=== PATIENT | male | born 1970 | race Hispanic/Latino ===

== ENCOUNTER 2016-11-01 00:02 | Emergency (ER) | payer OTHER ==
[2016-11-01 00:15] VITALS: BP 167/92
[2016-11-01] MEDS ORDERED: METFORMIN HCL1000 M2 PO (00:16)
[2016-11-01] MEDS ORDERED: VOLTAREN100 GM TOP (00:16)
--- NOTE | 2016-11-01 00:36 | ED GI/GU/ABDOMINAL COMPLAINT ---
History of Present Illness General Chief Complaint: Male Genitourinary Problems Stated Complaint: "PER PT YEAST INFECTION?" Source: patient, old records Exam Limitations: no limitations Vital Signs & Intake/Output Vital Signs & Intake/Output Vital Signs Date Time Temp Pulse Resp B/P B/P Pulse O2 O2 Flow FiO2 Mean Ox Delivery Rate 11/01 0015 97.5 108 20 167/92 98 Allergies Coded Allergies: No Known Allergies (11/01/16) Reconcile Medications Clotrimazole 1 % CREAM..G. 1 LUIS TOP QAMPM balanitis apply to affected area(s) Diclofenac Sodium (Voltaren) 1 % GEL..GRAM. 1 GM TOP 4 TIMES/DAY RASH ( Reported) apply to affected area(s) Fluconazole (Diflucan) 150 MG TABLET 1 TAB PO Q72HR balanitis Metformin HCl (Metformin HCl ER) 1,000 MG TAB.ER.24 1 TAB PO DAILY DM ( Reported) Triage Note: PER PT TAKING METFORMIN AND DEVELOPED YEAST INFECTION HAS IT ON UNCIRCUMSIZED PENIS Triage Nurses Notes Reviewed? yes Onset: Abrupt Duration: day(s): (4), constant Timing: recent history Quality/Severity: aching, burning Severity Numbers: 5 Location: DENIES Activities at Onset: none Prior Abdominal Problems: similar symptoms No Modifying Factors: none Associated Symptoms: DENIES HPI: 46-year-old male presents to ER for evaluation complaining burning pain to the tip of his penis for the past 4-5 days he is a type II diabetic takes metformin. He states his sugars recently have been elevated in the 200s. He states that his urologist prescribed him Voltaren gel which she's been applying without improvement. He states the past he was given pills which resolved his symptoms. He denies any pain with urination however her ports burning pain with attempting to pull back his foreskin. No testicular pain noted all pain fever chills nausea vomiting (CESAR CORONA) Past History Travel History Traveled to [place] past 21 day No Medical History Any Pertinent Medical History? see below for history Neurological: NONE EENT: NONE Cardiovascular: NONE Respiratory: NONE Gastrointestinal: NONE Hepatic: NONE Renal: NONE Musculoskeletal: NONE Psychiatric: NONE Endocrine: diabetes Surgical History Surgical History: non-contributory Psychosocial History What is your primary language Malian Tobacco Use: Current Daily Use Daily Tobacco Use Amount/Type: => 5 Cigarettes daily Family History Hx Contributory? No (CESAR CORONA) Review of Systems Review of Systems Constitutional: Reports: see HPI. All Other Systems: Reviewed and Negative Comments Review of systems: See HPI, All other systems negative. Constitutional, no chills no fever, no malaise HEENT: No visual changes no sore throat no congestion Cardiovascular: No chest pain , no palpitation Skin: no rashes, no change in skin Respiratory: No dyspnea no cough no sputum GI: No nausea no vomiting, no diarrhea, : No dysuria No hematuria, no frequency, no discharge Muscle skeletal: No joint pain, no back pain, no neck pain, Neurologic: No numbness no headache Psych: No stress Heme/endocrine: No bruising Immunology: No lymphadenopathy (CESAR CORONA) Physical Exam Physical Exam General Appearance: well developed/nourished, no apparent distress Gastrointestinal: normal bowel sounds, soft, non-tender Comments: Well-developed well-nourished patient in no apparent distress. HEENT: Atraumatic, extraocular motion intact Neck: Supple, FROM Back: FROM Cardiovascular: Regular rate and rhythms no murmurs rubs or gallops, Respiratory: No respiratory distress. Patient speaking in full complete sentences. Breath sounds clear to auscultation bilaterally: NO W/R/R Male : Erythematous macerated glands uncircumcised male, testes nontender. No scrotal swelling or mases, No lesions/discharge. Extremities: full range of motion Neuro: awake, alert, and oriented to person, place and time. There were no obvious focal neurologic abnormalities. Skin: Warm & dry;No appreciable rash on exposed skin Psych: Mood affect normal, normal memory normal judgment. Core Measures ACS in differential dx? No Severe Sepsis Present: No Septic Shock Present: No (CESAR CORONA) Progress Differential Diagnosis: BALANITIS, PHIMOSIS, PARAPHIMOSIS, UTI Plan of Care: I discussed with the patient at length all of their results. I had an extensive conversation regarding need for close follow up with their urologist this week as well as return precautions. I answered all of their questions, they feel comfortable with the plan and follow-up care. I discussed with the patient/family the medications that they will receive. I gave them signs and symptoms that could indicate an adverse reaction. I have advised them to limit their activities until they can see how they respond to the medication. Initial ED EKG: none (CESAR CORONA) Departure Departure Time of Disposition: 40 Disposition: HOME OR SELF CARE Condition: Stable Clinical Impression Primary Impression: Balanitis Referrals: PATIENT HAS NO PRIMARY CARE DR (PCP/Family) Additional Instructions: follow up with dr parada your urologist. diflucan as directed. lotrim as directed return with any concerns Departure Forms: Customer Survey General Discharge Information Prescriptions: Current Visit Scripts Fluconazole (Diflucan) 1 TAB PO Q72HR #2 TAB Clotrimazole 1 LUIS TOP QAMPM #15 GM apply to affected area(s) (CESAR CORONA) PA/BUNDLE SHAKER Co-Sign Statement Statement: ED Attending supervision documentation- [] I saw and evaluated the patient. I have also reviewed all the pertinent lab results and diagnostic results. I agree with the findings and the plan of care as documented in the PA's/BUNDLE SHAKER's documentation. [X] I have reviewed the ED Record and agree with the PA's/BUNDLE SHAKER's documentation. [] Additions or exceptions (if any) to the PAs/BUNDLE SHAKER's note and plan are summarized below: [] (LORAINE RUIZ,KIRSTIN)
[2016-11-01] MEDS ORDERED: CLOTRIMAZOLE15 GM TOP (00:43)
[2016-11-01] MEDS ORDERED: DIFLUCAN150 M1 PO (00:43)
== END 2016-11-01 00:47 ==
LOC: ERH 00:02
DX: N48.1 Balanitis (principal)

== ENCOUNTER 2017-10-03 21:36 | Emergency (ER) | payer OTHER ==
[~2017-10-03 21:36] MED LIST: AMLODIPINE BES2.5 M1 PO; ASPIRIN EC81 M1 PO; AZITHROMYCIN500 M3 PO; CLOTRIMAZOLE15 GM TOP; DIFLUCAN150 M1 PO; FARXIGA10 M1 PO; METFORMIN HCL1000 M2 PO; NASONEX17 GM NASB; VOLTAREN100 GM TOP
--- NOTE | 2017-10-03 22:14 | ED NECK/BACK PAIN COMPLAINT ---
History of Present Illness General Chief Complaint: Low Back Pain/Injury Stated Complaint: BACK PAIN Source: patient Exam Limitations: no limitations Vital Signs & Intake/Output Vital Signs & Intake/Output Vital Signs Date Time Temp Pulse Resp B/P B/P Pulse O2 O2 Flow FiO2 Mean Ox Delivery Rate 10/03 2313 99.1 113 20 161/88 98 10/03 2216 98 Room Air 10/03 2140 140 28 153/91 97 Allergies Coded Allergies: No Known Allergies (11/01/16) Reconcile Medications Amlodipine Besylate 2.5 MG TABLET 1 TAB PO DAILY HEART/BP (Reported) Aspirin (Ecotrin*) 81 MG TABLET.DR 1 TAB PO DAILY HEART/BLOOD (Reported) Azithromycin 500 MG TABLET 1 TAB PO DAILY pneumonia 2 TABLETS ON DAY 1 FOLLOWED BY 1 TABLET DAILY Brompheniramine/Pseudoephed/Dm (Bromfed Dm Cough Syrup) 2 MG-30 MG-10 MG/5 ML SYRUP 5-10 ML PO Q4-6 PRN PRN cough Cyclobenzaprine HCl 10 MG TABLET 1 TAB PO QPM PRN muscle strain Dapagliflozin Propanediol (Farxiga) (Unknown Strength) TABLET (Unknown Dose) PO DAILY DM (Reported) Metformin HCl (Metformin HCl ER) 1,000 MG TAB.ER.24 1 TAB PO DAILY DM ( Reported) Methylprednisolone. 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 yes Onset: Just prior to arrival Duration: hour(s): (1.5) Timing: single episode today Quality/Severity: severe, sharpness Location: lumbar spine Radiation: Pain radiates to left outer leg Context: lifting HPI: 47-year-old male with noncontributory past medical history presents emergency department complaining of low back pain. Pain started abruptly tonight when he was lifting up the sofa. He felt a slight twinge in his low back. He went upstairs to rest and then noticed an increase in pain. He has had difficulty walking since this happened. The pain does radiate down his left leg. He denies any numbness or tingling in the legs. He has not taken anything for the pain. No previous back injuries. Denies any previous back surgeries. Denies any saddle anesthesia, retention or incontinence. No recent fever or chills. He has had recent URI symptoms, cough, congestion. Family members sick with similar symptoms. He is a daily smoker. (Leander Aviles PA-C) Past History Travel History Traveled to [place] past 21 day No Medical History Any Pertinent Medical History? none Neurological: NONE EENT: NONE Cardiovascular: hypertension Respiratory: NONE Gastrointestinal: NONE Hepatic: NONE Renal: NONE Musculoskeletal: NONE Psychiatric: NONE Endocrine: diabetes Surgical History Surgical History: non-contributory Psychosocial History What is your primary language Hungarian Tobacco Use: Current Daily Use Daily Tobacco Use Amount/Type: => 5 Cigarettes daily Family History Hx Contributory? No (Leander Aviles PA-C) Review of Systems Review of Systems Constitutional: Reports: no symptoms. Eyes: Reports: no symptoms. Ears, Nose, Throat, Mouth: Reports: no symptoms. Respiratory: Reports: no symptoms. Cardiovascular: Reports: no symptoms. Gastrointestinal/Abdominal: Reports: no symptoms. Musculoskeletal: Reports: see HPI. Skin: Reports: no symptoms. Neurological/Psychological: Reports: no symptoms. All Other Systems: Reviewed and Negative (Leander Aviles PA-C) Physical Exam Physical Exam General Appearance: well developed/nourished, mild distress Head: atraumatic Eyes: Bilateral: PERRL, EOMI. Ears, Nose, Throat, Mouth: hearing grossly normal, moist mucous membrane Neck: normal inspection, supple, full range of motion Respiratory: normal breath sounds Cardiovascular: regular rate/rhythm Gastrointestinal: soft, non-tender Back: No midline tenderness, bilateral lumbar perispinal muscle tenderness. Pain with SLR bilaterally, stength is 5/5 bilateral lower extremities, sensation is grossly intact BLE, patellar DTR 2+ equal and symmetric. Distal pusles normal. Extremities: normal range of motion Neurologic/Psych: awake, alert, oriented x 3, normal mood/affect Skin: intact, normal color, warm/dry Core Measures CVA/TIA Diagnosis: No (Leander Aviles PA-C) Progress Differential Diagnosis: AAA, aortic dissection, carotid dissection, cauda equina syn, herniated disc, myofascial strain, pyelo/UTI, sciatica, spinal cord inj, thoracic outlet syn, T/L spine injury, ureterolithiasis, spinal epidural abscess Plan of Care: Orders Procedure Date/time Status EKG 10/03 2142 Active Diagnostic Imaging: Viewed by Me: Radiology Read. Discussed w/RAD: Radiology Read. Radiology Impression: PATIENT: JAJA HAYWOOD PRESENT AGE: 47 PATIENT ACCOUNT NO: [id number] : 68 LOCATION: [facility] ORDERING PHYSICIAN: Leander Aviles PA-C SERVICE DATE: 10/03/17 EXAM TYPE: RAD - XRY -LUMBOSACRAL SPINE 4 VIEWS EXAMINATION: XR LUMBOSACRAL SPINE CLINICAL INFORMATION: Lower back strain, injured back lifting sofa. COMPARISON: None TECHNIQUE: 4 views of the lumbosacral spine were obtained. FINDINGS: No fracture or dislocation. Mild degenerative endplate changes without significant cartilage space narrowing. Anterior osteophyte formation at T10-T11. Mild facet arthropathy in the lumbar spine. IMPRESSION: Mild lumbar degenerative changes. No acute osseous abnormalities. DICTATED BY: Veto Gooden MD DATE/TIME DICTATED:10/03/172241 RESERVOIR CARETAKER:RUTH DATE/TIME TRANSCRIBED:2241 CONFIDENTIAL, DO NOT COPY WITHOUT APPROPRIATE AUTHORIZATION. < Electronically signed in Other Vendor System> SIGNED BY: Veto Gooden MD 10/03/172247 Initial ED EKG: Sinus tachycardia at 111. Normal rhythm. Nonspecific ST/T wave changes. Comments: 47-year-old male with reproducible low back pain after lifting injury earlier today. The pain is worse with movement. Better when he lays flat. Exam is c/w sciatica,lumbrosacral strain. Possible herniated disk. Independent visualization of xray is unremarkable, no fracture or dislocation. No focal neuro deficits on exam. No sensory or motor deficits. He has no saddle anesthesia, retention or incontinence to suspect cauda equina syndrome. Not consistent with pyelo, UTI, AAA,epidural abscess, cord syndrome. He only had minimal pain relief with Valium and Toradol. Will give percocet here and DC on same for a few days. Recommend he follow-up with his primary care doctor within 2-3 days. Return immediately with any worsening symptoms. He is in agreement with plan of care. Pt slightly tachy at 140 on arrival, likely pain related. Down to 111 on EKG. Doubt ACS. (Stefan JACOB,Leander) Departure Departure Disposition: HOME OR SELF CARE Condition: Stable Clinical Impression Primary Impression: Low back strain Qualifiers: Encounter type: initial encounter Qualified Code: S39.012A - Strain of muscle, fascia and tendon of lower back, initial encounter Secondary Impressions: URI (upper respiratory infection) Referrals: Unknown (PCP/Family) Additional Instructions: Take Percocet as needed for pain. You can also take Motrin or Tylenol as needed. Flexeril as needed for muscle relaxer. Rest, ice for 20 minutes on, 20 minutes off. You could also use heating pad. Avoid any strenuous activity. Bromfed DM and medrol dosepack for cough and congestion. Follow up with your primary care doctor in 2-3 days. Return immediately with any new or worsening symptoms. Departure Forms: Customer Survey General Discharge Information Prescriptions: Current Visit Scripts Oxycodone HCl/Acetaminophen (Percocet 5-325 MG Tablet) 1 TAB PO BID PRN pain #10 TAB Brompheniramine/Pseudoephed/Dm (Bromfed Dm Cough Syrup) 5-10 ML PO Q4-6 PRN PRN cough #120 ML Methylprednisolone. (Medrol) 1 DP PO AD #1 DP 6 on day 1 then reduce by one tablet daily until gone Cyclobenzaprine HCl 1 TAB PO QPM PRN muscle strain #10 TAB (Leander Aviles PA-C) PA/KNOCK OUT HAND Co-Sign Statement Statement: ED Attending supervision documentation- [] I saw and evaluated the patient. I have also reviewed all the pertinent lab results and diagnostic results. I agree with the findings and the plan of care as documented in the PA's/KNOCK OUT HAND's documentation. [x] I have reviewed the ED Record and agree with the PA's/KNOCK OUT HAND's documentation. [] Additions or exceptions (if any) to the PAs/KNOCK OUT HAND's note and plan are summarized below: [] (Lanre RUIZ,Raymond Roth)
--- NOTE | 2017-10-03 22:48 | RADIOLOGY REPORT ---
EXAMINATION: XR LUMBOSACRAL SPINE CLINICAL INFORMATION: Lower back strain, injured back lifting sofa. COMPARISON: None TECHNIQUE: 4 views of the lumbosacral spine were obtained. FINDINGS: No fracture or dislocation. Mild degenerative endplate changes without significant cartilage space narrowing. Anterior osteophyte formation at T10-T11. Mild facet arthropathy in the lumbar spine. IMPRESSION: Mild lumbar degenerative changes. No acute osseous abnormalities.
[2017-10-03] MEDS ORDERED: PERCOCET 5-3251 EACH PO (23:05)
[2017-10-03] MEDS ORDERED: BROMFED DM COU118 M1 PO (23:06)
[2017-10-03] MEDS ORDERED: MEDROL4 M2 PO (23:06)
[2017-10-03] MEDS ORDERED: CYCLOBENZAPRINE10 M1 PO (23:08)
[2017-10-03 23:13] VITALS: BP 161/88
[2017-12-22] MEDS ORDERED: NYSTATIN15 GM TOP (22:11)
[2017-12-22] MEDS ORDERED: DIFLUCAN150 M1 PO (22:11)
== END 2017-10-03 23:16 ==
LOC: ERH 21:36
DX: S39.012A Strain of muscle, fascia and tendon of lower back, initial encounter (principal); J06.9 Acute upper respiratory infection, unspecified; X50.9XXA Other and unspecified overexertion or strenuous movements or postures, initial encounter; Y93.9 Activity, unspecified; Y92.9 Unspecified place or not applicable
CPT/HCPCS: 72110; 93005; 93010; 96372; J1885; J3360

== ENCOUNTER 2018-01-09 15:27 | Emergency (ER) | payer OTHER ==
[~2018-01-09 15:27] MED LIST changes: +BROMFED DM COU118 M1 PO; +CYCLOBENZAPRINE10 M1 PO; +MEDROL4 M2 PO; +NYSTATIN15 GM TOP; +PERCOCET 5-3251 EACH PO
== END 2018-01-09 15:45 | disposition admitted as inpatient to this hospital (09) ==
LOC: ERH 15:27
DX: R10.9 Unspecified abdominal pain (principal)